=== PATIENT | female | born 1995 | race Caucasian/White ===

== ENCOUNTER 2016-11-12 14:23 | Emergency (ER) | payer OTHER ==
[~2016-11-12] VITALS: Ht 157.5 cm; Wt 46.8 kg
[~2016-11-12 14:23] MED LIST: CYANOCOBALAM1000 MCG PO; IRON PO; LAMICTAL200 MG PO; LEVETIRACETAM500 MG PO; LEVOFLOXACIN750 MG PO; PRAMIPEXOLE D0.25 MG PO; PROAIR HFA8.5 GM IH; SPRINTEC1 EACH PO; TRAMADOL HCL50 MG PO; ZOMIG5 M1 NS
[2016-11-12 15:35] LABS: HEMATOCRIT 36.3 % (36.0-46.0); MCH 26.8 PG (29.0-34.0); MCHC 33.9 G/DL (30.0-36.0); MCV 79.1 FL (83-99); MEAN PLAT.VOLUME 8.6 uM^3 (9.5-12.4); PLATELET COUNT 222 K/uL (156-360); RBC DIS.WIDTH-CV 14.9 % (11.8-14.6); RBC DIS.WIDTH-SD 42.1 % (39-53); RED BLOOD COUNT 4.59 M/uL (3.80-5.20); WHITE BLOOD COUNT 18.6 K/uL (4.1-10.2)
[2016-11-12 15:44] LABS: CHLORIDE 99 mEq/L (99-109); POTASSIUM 3.6 mEq/L (3.7-5.4); SODIUM 135 mEq/L (136-147)
[2016-11-12 15:46] LABS: GLUCOSE 90 mg/dL (70-99)
[2016-11-12 15:48] LABS: ANION GAP 12 MEQ/L (2-14)
[2016-11-12 15:49] LABS: TOTAL BILIRUBIN 0.8 mg/dL (0.0-1.0)
[2016-11-12 15:50] LABS: ALKALINE PHOSPHATASE 111 IU/L (3-129); GFR ESTIMATE (CALCULATED) > 59 mL/min/
[2016-11-12 15:51] LABS: UREA NITROGEN (BUN) 21 mg/dL (9-23)
[2016-11-12 15:54] LABS: LIPASE 7 U/L (1.0-51.0)
[2016-11-12] MEDS ORDERED: SUBOXONE 8 MG-1 EAC2 SL (15:56)
[2016-11-12] MEDS ORDERED: MIRAPEX0.5 MG PO (15:58)
[2016-11-12] MEDS ORDERED: IMITREX100 MG PO (16:00)
[2016-11-12 16:01] LABS: QUANTITATIVE HCG < 4.0 MIU/ML
[2016-11-12] MEDS ORDERED: XANAX0.5 MG PO (16:02)
[2016-11-12 16:07] LABS: ADD MIUA? YES; BILIRUBIN SMALL; BLOOD TRACE; COLOR DK YELLOW ((YELLOW)); GLUCOSE (STRIP) NEGATIVE; KETONES 40; LEUKOCYTES MODERATE; NITRITE NEGATIVE; PROTEIN (STRIP) 100; SPECIFIC GRAVITY 1.025 (1.000-1.030)
[2016-11-12 16:25] LABS: AMORPHOUS URATES CRYSTALS 2+; BACTERIA 3+; CASTS NONE SEEN /LPF; CRYSTALS PRESENT; EPITHELIAL CELLS 1+; MUCUS 3+; RED BLOOD CELLS 0-5 /HPF (0-5); UCUL ADDED? YES
[2016-11-12] MEDS ORDERED: LEVAQUIN500 MG PO (20:52)
[2016-11-12] MEDS ORDERED: MOTRIN800 MG PO (20:53)
[2016-11-12 21:02] VITALS: BP 107/55
== END 2016-11-12 21:03 | disposition home or self-care (01) ==
LOC: EME 14:23
DX: J18.9 Pneumonia, unspecified organism (principal); N39.0 Urinary tract infection, site not specified; K82.9 Disease of gallbladder, unspecified
CPT/HCPCS: 71020; 74177; 76705; 80053; 81003; 83605; 83690; 84702; 85027; 87040; 87086; 99281; 99285; J1956; J2405; J3010; J7030

== ENCOUNTER 2017-04-11 22:11 | Emergency (ER) | payer OTHER ==
[~2017-04-11] VITALS: Ht 157.5 cm; Wt 52.3 kg
[~2017-04-11 22:11] MED LIST changes: +IMITREX100 MG PO; +LEVAQUIN500 MG PO; +MIRAPEX0.5 MG PO; +MOTRIN800 MG PO; +SUBOXONE 8 MG-1 EAC2 SL; +XANAX0.5 MG PO
[2017-04-11 22:58] LABS: ADD MEDTOX COMMENT Y; AMPHETAMINE NEGATIVE (500 ng/mL); BARBITURATES NEGATIVE (200 ng/mL); BENZODIAZEPINES NEGATIVE (150 ng/mL); COCAINE PRESUMPTIVE POSITIVE (150 ng/mL); INTERNAL CONTROLS VALID? YES; METHADONE NEGATIVE (200 ng/mL); METHAMPHETAMINE PRESUMPTIVE POSITIVE (500 ng/mL); OPIATES (MORPHINE) PRESUMPTIVE POSITIVE (100 ng/mL); OXYCODONE NEGATIVE (100 ng/mL); PHENCYCLIDINE NEGATIVE (25 ng/mL); PROPOXYPHENE NEGATIVE (300 ng/mL); THC CANNABINOIDS PRESUMPTIVE POSITIVE (50 ng/mL); TRICYCLIC ANTIDEPRESSANTS PRESUMPTIVE POSITIVE (300 ng/mL)
[2017-04-11 22:59] LABS: HEMATOCRIT 37.1 % (36.0-46.0); MCV 82.4 FL (83-99); MEAN PLAT.VOLUME 8.2 uM^3 (9.5-12.4); PLATELET COUNT 265 K/uL (156-360); RBC DIS.WIDTH-CV 15.7 % (11.8-14.6); RBC DIS.WIDTH-SD 46.8 % (39-53); WHITE BLOOD COUNT 13.8 K/uL (4.1-10.2)
[2017-04-11 23:17] LABS: CHLORIDE 101 mEq/L (99-109); POTASSIUM 3.1 mEq/L (3.7-5.4); SODIUM 135 mEq/L (136-147)
[2017-04-11 23:19] LABS: GLUCOSE 165 mg/dL (70-99)
[2017-04-11 23:21] LABS: ANION GAP 13 MEQ/L (2-14)
[2017-04-11 23:22] LABS: SERUM ETHYL ALCOHOL < 10 mg/dL
[2017-04-11 23:23] LABS: GFR ESTIMATE (CALCULATED) > 59 mL/min/
[2017-04-11 23:25] LABS: UREA NITROGEN (BUN) 11 mg/dL (9-23)
[2017-04-11 23:26] LABS: SALICYLATE < 5.0 MG/DL (15-30)
[2017-04-11 23:32] LABS: QUANTITATIVE HCG < 4.0 MIU/ML
[2017-04-11 23:50] VITALS: BP 117/72
== END 2017-04-11 23:50 | disposition left against medical advice (07) ==
LOC: EME → EDBD 22:11 → EME 23:50
PROVIDERS: Emergency Medicine
DX: T65.91XA Toxic effect of unspecified substance, accidental (unintentional), initial encounter (principal); R41.82 Altered mental status, unspecified; F19.10 Other psychoactive substance abuse, uncomplicated; F14.90 Cocaine use, unspecified, uncomplicated; F12.90 Cannabis use, unspecified, uncomplicated; F11.90 Opioid use, unspecified, uncomplicated; F15.90 Other stimulant use, unspecified, uncomplicated; E87.6 Hypokalemia; J45.909 Unspecified asthma, uncomplicated; Z87.891 Personal history of nicotine dependence
CPT/HCPCS: 80048; 84702; 84999; 85027; 93005; 99281; 99284; G0480

== ENCOUNTER 2018-03-20 11:52 | Inpatient (IN) | payer OTHER ==
[~2018-03-20] VITALS: Ht 157.5 cm; Wt 55.4 kg
[~2018-03-20 11:52] MED LIST changes: +SUBOXONE 2 MG-1 EACH SL; -SUBOXONE 8 MG-1 EAC2 SL
[2018-03-20 13:19] LABS: HEMATOCRIT 50.5 % (36.0-46.0); HEMOGLOBIN 17.7 G/DL (11.9-15.5); MCH 29.3 PG (29.0-34.0); MCV 83.6 FL (83-99); PLATELET COUNT 364 K/uL (156-360); RBC DIS.WIDTH-SD 42.4 % (39-53); RED BLOOD COUNT 6.04 M/uL (3.80-5.20); WHITE BLOOD COUNT 19.1 K/uL (4.1-10.2)
[2018-03-20 13:31] LABS: CHLORIDE 105 mEq/L (99-109); POTASSIUM 4.4 mEq/L (3.7-5.4); SODIUM 138 mEq/L (136-147)
[2018-03-20 13:32] LABS: GLUCOSE 91 mg/dL (70-99)
[2018-03-20 13:36] LABS: CREATININE 1.1 mg/dL (0.6-1.3); GFR ESTIMATE (CALCULATED) > 59 mL/min/
[2018-03-20 13:37] LABS: UREA NITROGEN (BUN) 19 mg/dL (9-23)
[2018-03-20 13:41] LABS: TROP-I INTERPRETATION NEGATIVE; TROPONIN-I < 0.01 ng/mL (0.0-0.30)
[2018-03-20 13:46] LABS: QUANTITATIVE HCG < 4.0 MIU/ML
[2018-03-20 13:49] LABS: APPEARANCE CLEAR ((CLEAR)); BILIRUBIN NEGATIVE; BLOOD SMALL; COLOR YELLOW ((YELLOW)); GLUCOSE (STRIP) NEGATIVE; KETONES 80; LEUKOCYTES TRACE; NITRITE NEGATIVE; PROTEIN (STRIP) >=500; SPECIFIC GRAVITY 1.026 (1.000-1.030); UROBILINOGEN 0.2 MG/DL (0.2-1.0)
[2018-03-20 14:01] LABS: AMPHETAMINE NEGATIVE (500 ng/mL); BARBITURATES NEGATIVE (200 ng/mL); BENZODIAZEPINES NEGATIVE (150 ng/mL); BUPRENORPHINE NEGATIVE (10 ng/mL); COCAINE NEGATIVE (150 ng/mL); METHADONE NEGATIVE (200 ng/mL); METHAMPHETAMINE NEGATIVE (500 ng/mL); OPIATES (MORPHINE) NEGATIVE (100 ng/mL); OXYCODONE NEGATIVE (100 ng/mL); PHENCYCLIDINE NEGATIVE (25 ng/mL); PROPOXYPHENE NEGATIVE (300 ng/mL); THC CANNABINOIDS NEGATIVE (50 ng/mL); TRICYCLIC ANTIDEPRESSANTS NEGATIVE (300 ng/mL)
[2018-03-20 14:08] LABS: BACTERIA NONE SEEN /HPF; EPITHELIAL CELLS 1+ /HPF; MUCUS TRACE /LPF; WHITE BLOOD CELLS 0-5 /HPF (0-5)
[2018-03-20 14:20] LABS: CREATINE KINASE 131 IU/L (1-294); TOTAL CK 131 IU/L (1-294)
[2018-03-20 14:26] LABS: CK-MB 5.8 ng/mL (0.0-4.9); CKMB RELATIVE INDEX 4.4 (0.0-3.9)
[2018-03-20 15:02] LABS: CARBON DIOXIDE (BICARBONATE) 14.3 MEQ/L (20-31)
[2018-03-20 15:17] LABS: THYROTROPIN (TSH) 0.74 MIU/L (0.4-5.5)
[2018-03-20] MEDS ORDERED: SUBOXONE 4 MG-1 EACH SL (15:21)
[2018-03-20 15:59] LABS: BASE EXCESS -13.2 mEq/L (-3 to +3); BICARBONATE 11.3 mEq/L (22-26); CARBOXY HGB 1.1 % (0-5); METHEMOGLOBIN 1.1 % (0-1.5); PO2 106 mm Hg (80-100)
[2018-03-20 16:00] LABS: COMMENTS - BLOOD GASES C+; FI02 21 %; PCO2 24 mm Hg (35-45); SITE RB; pH 7.28 (7.35-7.45)
[2018-03-20 16:25] LABS: ALBUMIN 5.6 G/DL (3.2-4.8); ALKALINE PHOSPHATASE 98 IU/L (3-129); ALT (GPT) 18 IU/L (3-49); AST (GOT) 28 IU/L (2-34); DIRECT BILIRUBIN 0.1 mg/dL (0.0-0.3); TOTAL BILIRUBIN 0.4 MG/DL (0.0-1.0); TOTAL PROTEIN 9.5 G/DL (6.4-8.3)
[2018-03-20 19:15] VITALS: BP 102/55
[2018-03-20 23:29] VITALS: BP 122/63
[2018-03-21 03:57] VITALS: BP 118/57
[2018-03-21 06:01] LABS: HEMATOCRIT 37.8 % (36.0-46.0); MCH 28.8 PG (29.0-34.0); MCHC 34.4 G/DL (30.0-36.0); MCV 83.8 FL (83-99); PLATELET COUNT 257 K/uL (156-360); RBC DIS.WIDTH-CV 14.1 % (11.8-14.6); RBC DIS.WIDTH-SD 43.2 % (39-53); RED BLOOD COUNT 4.51 M/uL (3.80-5.20); WHITE BLOOD COUNT 7.5 K/uL (4.1-10.2)
[2018-03-21 06:27] LABS: CHLORIDE 106 MEQ/L (99-109); GLUCOSE 74 mg/dL (70-99); POTASSIUM 3.7 MEQ/L (3.7-5.4); SODIUM 141 MEQ/L (136-147); UREA NITROGEN (BUN) 13 mg/dL (9-23)
[2018-03-21 06:28] LABS: CREATININE 0.6 MG/DL (0.6-1.3); GFR ESTIMATE (CALCULATED) > 59 mL/min/
[2018-03-21 07:34] VITALS: BP 114/61
[2018-03-21 10:45] LABS: BASE EXCESS 2.2 mEq/L (-3 to +3); BICARBONATE 26.5 mEq/L (22-26); CARBOXY HGB 1.9 % (0-5); METHEMOGLOBIN 1.1 % (0-1.5); PCO2 39 mm Hg (35-45); PO2 69 mm Hg (80-100); pH 7.44 (7.35-7.45)
[2018-03-21 10:46] LABS: COMMENTS - BLOOD GASES A+C+; FI02 0.21 %; SITE LR; TOTAL RESP RATE 12 resp/min
[2018-03-21 11:29] VITALS: BP 119/70
[2018-03-21 15:38] VITALS: BP 116/84
[2018-03-21 16:20] VITALS: BP 92/50
[2018-03-21 22:55] VITALS: BP 117/58
[2018-03-22 06:56] VITALS: BP 95/50
[2018-03-22 06:59] LABS: CHLORIDE 106 MEQ/L (99-109); CREATININE 0.6 MG/DL (0.6-1.3); GFR ESTIMATE (CALCULATED) > 59 mL/min/; GLUCOSE 77 mg/dL (70-99); POTASSIUM 3.1 MEQ/L (3.7-5.4); SODIUM 141 MEQ/L (136-147); UREA NITROGEN (BUN) 13 mg/dL (9-23)
[2018-03-22] MEDS ORDERED: BUPROPION XL150 MG PO (13:08)
[2018-03-22] MEDS ORDERED: GABAPENTIN300 MG PO (13:08)
[2018-03-22] MEDS ORDERED: LAMOTRIGINE200 MG PO (13:08)
== END 2018-03-22 13:43 | disposition home or self-care (01) | DRG 641 ==
LOC: RME 11:52 → EME 11:52 → ENRESERV 16:39 → EDOF 16:58 → 5EAST 16:58 → ENRESERV 17:31 → 4EAST 19:15 → ENRESERV 03-21 13:36 → 5EAST 03-21 16:21
PROVIDERS: Emergency Medicine; Family Medicine; Internal Medicine
DX: E87.2 Acidosis (principal); F11.23 Opioid dependence with withdrawal; E87.6 Hypokalemia; E86.0 Dehydration; R07.9 Chest pain, unspecified; G43.909 Migraine, unspecified, not intractable, without status migrainosus; E03.9 Hypothyroidism, unspecified; F41.9 Anxiety disorder, unspecified; F32.9 Major depressive disorder, single episode, unspecified; G25.81 Restless legs syndrome; J45.909 Unspecified asthma, uncomplicated; F17.200 Nicotine dependence, unspecified, uncomplicated
CPT/HCPCS: 36600; 71045; 80048; 80076; 81003; 82550; 82553; 82803; 83605; 84439; 84443; 84481; 84484; 84702; 85027; 87086; 93005; 99281; 99285; J0572; J2405; J7030

== ENCOUNTER 2018-05-14 03:22 | Inpatient (IN) | payer OTHER ==
[~2018-05-14] VITALS: Ht 149.9 cm; Wt 79.9 kg
[~2018-05-14 03:22] MED LIST changes: +BUPROPION XL150 MG PO; +GABAPENTIN300 MG PO; +LAMOTRIGINE200 MG PO; +SUBOXONE 4 MG-1 EACH SL
[2018-05-14 04:56] LABS: HEMATOCRIT 41.1 % (36.0-46.0); HEMOGLOBIN 14.3 G/DL (11.9-15.5); MCH 29.3 PG (29.0-34.0); MCHC 34.8 G/DL (30.0-36.0); MCV 84.2 FL (83-99); PLATELET COUNT 242 K/uL (156-360); RBC DIS.WIDTH-CV 13.6 % (11.8-14.6); RBC DIS.WIDTH-SD 41.9 % (39-53); RED BLOOD COUNT 4.88 M/uL (3.80-5.20); WHITE BLOOD COUNT 5.8 K/uL (4.1-10.2)
[2018-05-14 05:12] LABS: ALBUMIN 4.5 g/dL (3.2-4.8); CHLORIDE 103 mEq/L (99-109); POTASSIUM 3.8 mEq/L (3.7-5.4); SODIUM 141 mEq/L (136-147)
[2018-05-14 05:14] LABS: GLUCOSE 101 mg/dL (70-99)
[2018-05-14 05:15] LABS: TOTAL PROTEIN 7.7 g/dL (6.4-8.3)
[2018-05-14 05:16] LABS: TOTAL BILIRUBIN 0.4 mg/dL (0.0-1.0)
[2018-05-14 05:17] LABS: SERUM ETHYL ALCOHOL < 10 mg/dL
[2018-05-14 05:18] LABS: ALKALINE PHOSPHATASE 97 IU/L (3-129); CREATININE 0.8 mg/dL (0.6-1.3); GFR ESTIMATE (CALCULATED) > 59 mL/min/
[2018-05-14 05:19] LABS: UREA NITROGEN (BUN) 13 mg/dL (9-23)
[2018-05-14 05:20] LABS: AST (GOT) 39 IU/L (2-34)
[2018-05-14 05:21] LABS: ALT (GPT) 32 IU/L (3-49)
[2018-05-14 06:03] LABS: QUANTITATIVE HCG < 4.0 MIU/ML
[2018-05-14 06:57] LABS: APPEARANCE CLEAR ((CLEAR)); BILIRUBIN NEGATIVE; BLOOD NEGATIVE; COLOR YELLOW ((YELLOW)); GLUCOSE (STRIP) NEGATIVE; KETONES NEGATIVE; LEUKOCYTES NEGATIVE; NITRITE NEGATIVE; PROTEIN (STRIP) 30; SPECIFIC GRAVITY 1.028 (1.000-1.030); UCUL ADDED? NO
[2018-05-14 07:12] LABS: COCAINE PRESUMPTIVE POSITIVE (150 ng/mL); PHENCYCLIDINE NEGATIVE (25 ng/mL); THC CANNABINOIDS NEGATIVE (50 ng/mL)
[2018-05-14 07:13] LABS: AMPHETAMINE NEGATIVE (500 ng/mL); BARBITURATES NEGATIVE (200 ng/mL); BENZODIAZEPINES NEGATIVE (150 ng/mL); BUPRENORPHINE PRESUMPTIVE POSITIVE (10 ng/mL); METHADONE NEGATIVE (200 ng/mL); METHAMPHETAMINE NEGATIVE (500 ng/mL); OPIATES (MORPHINE) NEGATIVE (100 ng/mL); OXYCODONE NEGATIVE (100 ng/mL); PROPOXYPHENE NEGATIVE (300 ng/mL); TRICYCLIC ANTIDEPRESSANTS NEGATIVE (300 ng/mL)
[2018-05-14 15:59] VITALS: BP 103/60
[2018-05-14 16:29] VITALS: BP 103/60
[2018-05-15 08:01] VITALS: BP 94/62
[2018-05-15 16:12] VITALS: BP 106/64
[2018-05-16 08:07] VITALS: BP 88/51
[2018-05-16 16:18] VITALS: BP 111/73
[2018-05-17 08:23] VITALS: BP 76/46
[2018-05-17 10:20] VITALS: BP 86/50
[2018-05-17 17:00] VITALS: BP 88/50
[2018-05-18 07:46] VITALS: BP 75/44
[2018-05-18 10:39] VITALS: BP 111/66
[2018-05-18 13:06] VITALS: BP 111/55
[2018-05-18 16:30] VITALS: BP 108/57
[2018-05-19 12:52] VITALS: BP 105/63
[2018-05-19 15:31] VITALS: BP 98/54
== END 2018-05-19 15:12 | disposition home or self-care (01) | DRG 881 ==
LOC: EME 03:22 → EDOF 12:30 → 1WEST 12:30 → ENRESERV 15:53 → 1WEST 05-19 15:12
PROVIDERS: Physician Assistant
DX: F43.21 Adjustment disorder with depressed mood (principal); R45.851 Suicidal ideations; Z59.0 Homelessness; F14.10 Cocaine abuse, uncomplicated; F11.23 Opioid dependence with withdrawal; F17.200 Nicotine dependence, unspecified, uncomplicated; E03.9 Hypothyroidism, unspecified; G40.909 Epilepsy, unspecified, not intractable, without status epilepticus; J45.909 Unspecified asthma, uncomplicated
CPT/HCPCS: 80053; 81003; 84702; 84999; 85027; 90839; 97150 GO; 97165 GO; 99281; 99285; G0480; J0572; Q0177